=== PATIENT | male | born 1950 | race Hispanic/Latino ===

== ENCOUNTER 2019-02-12 23:40 | Emergency (ER) | payer MEDICARE ==
--- OUTSIDE RECORDS SUMMARY | 2019-02-12 23:43 | XMS REPORT | Summary of Care ---
:1950 Author Organization [facility] Primary [place] Address [address] [place] [address]- Encounter HQ Feliz_sonia(FIN) [phone] Date(s): 05/21/18 - 05/21/18 [facility] [place] [address] [place] [address]- [phone] Discharge Disposition: Home or Self Care Attending Physician: Walker Omalley MD Vital Signs Most recent to oldest [Reference Range]: 1 Height 172.72 cm (05/21/18 7:59 AM) Temperature Oral [96.4-99.1 DegF] 98.2 DegF (05/21/18 7:59 AM) Blood Pressure [90-140/60-90 mmHg] 135/82 mmHg (05/21/18 7:59 AM) Peripheral Pulse Rate [60-100 bpm] 78 bpm (05/21/18 7:59 AM) Weight 103.818 kg (05/21/18 7:59 AM) Body Mass Index 34.8 m2 (05/21/18 7:59 AM) Problem List Condition Effective Dates Status Health Status Informant Diabetes mellitus with Active hyperglycemia(Confirmed) Erectile dysfunction due to arterial Active insufficiency(Confirmed) Hypertension(Confirmed) Active Hypertensive heart disease(Confirmed) Active Impaired fasting glucose(Confirmed) Active Elevated PSA(Confirmed) Active Obesity due to excess Active calories(Confirmed) Allergies, Adverse Reactions, Alerts Substance Reaction Severity Status NKDA Active Medications losartan 25 mg oral tablet See Instructions, 1/2 tab PO daily, # 30 tab, 2 Refill(s), Pharmacy: [facility] #1 Start Date: 05/21/18 Stop Date: 11/24/18 Status: CompletedmetFORMIN 1000 mg oral tablet 1,000 mg=1 tab, PO, BID-Meals, # 180 tab, 1 Refill(s), Pharmacy: [facility] [place] #1 Start Date: 05/26/18 Status: Ordered Results No data available for this section Immunizations No data available for this section Procedures Procedure Date Related Diagnosis Body Site Status Diabetic retinal eye exam 06/16/18 Completed Tonsillectomy Completed Social History Social History Type Response Smoking Status Former smoker; Type: Cigarettes; Exposure to Tobacco Smoke None ; Cigarette Smoking Last 365 Days No; Reg Smoking Cessation Counseling No1 entered on: 12/07/18 120 years ago Assessment and Plan No data available for this section
--- OUTSIDE RECORDS SUMMARY | 2019-02-12 23:43 | XMS REPORT | Continuity of Care Document ---
:1950 Author Organization Interface Problems Problem Status Onset Classification Date Comments Source Date Reported Congestion of 09/11/20 Diagnosis 09/11/2018 [facility] nasal sinus 18 Body mass index 09/11/20 Diagnosis 09/11/2018 [facility] 30+ - obesity 18 Hypertensive 09/11/20 Diagnosis 09/11/2018 [facility] disorder 18 Cough 09/11/20 Diagnosis 09/11/2018 [facility] 18 Influenza-like 09/11/20 Diagnosis 09/11/2018 [facility] symptoms 18 Acute 09/11/20 Diagnosis 09/11/2018 [facility] pharyngitis 18 Essential 06/13/20 Diagnosis 06/13/2018 [facility] hypertension 18 Lower 06/13/20 Diagnosis 06/13/2018 [facility] respiratory 18 tract infection Cough 06/02/20 12/13/2018 [facility] 18 [place] R05 - COUGH Active 05/22/20 [facility] 18 [place] Erectile Active Problem 12/13/2018 Medical dysfunction due Group, [facility] to arterial [place] insufficiency Hypertension Active Problem 12/13/2018 Medical Group, [facility] [place] Impaired fasting Active Problem 12/13/2018 Medical glucose Group, [facility] [place] Elevated PSA Active Problem 12/13/2018 Medical Group, [facility] [place] Obesity due to Active Problem 12/13/2018 Medical excess calories Group, [facility] [place] Diabetes Active Problem 12/13/[address] [facility] [address] [facility] hyperglycemia Medical Group Hypertensive Active Problem 12/13/2018 [facility] heart disease [place], Medical Group Acute Viral Problem 09/11/2018 [facility] Pharyngitis Medications Medication Details Route Status Patient Ordering Order Source Instructions Provider Date losartan 25 mg =0.5 tab, PO, Active Medical oral tablet Daily, # 45 2018 Group ea, Pharmacy: [facility] Pharmacy [place] #1 amLODIPine 10 =1 tab, PO, Active 11/24/ Medical mg oral tablet Daily, # 90 2018 Group ea, Pharmacy: [facility] Pharmacy [place] #1 Metformin 1,000 mg=1 Active Medical hydrochloride tab, PO, 2018 Group 1000 MG Oral BID-Meals, # Tablet 180 tab, 1 Refill(s), Pharmacy: [facility] #1 amLODIPine 10 See No Medical mg oral tablet Instructions, Longer 2018 Group # 90 ea, Active Refill(s) 1, TAKE ONE (1) TABLET(S) BY MOUTH DAILY., Pharmacy: [facility] #1 losartan 25 mg See No Medical oral tablet Instructions, Longer 2018 Group 1/2 tab PO Active daily, # 30 tab, 2 Refill(s), Pharmacy: [facility] #1 lisinopril 10 See No Medical mg oral tablet Instructions, Longer 2018 Group # 90 ea, TAKE Active ONE (1) TABLET(S) BY MOUTH ONCE A DAY., Pharmacy: [facility] #1 amLODIPine 10 See Active Medical mg oral tablet Instructions, 2018 Group # 90 ea, TAKE ONE (1) TABLET(S) BY MOUTH DAILY., Pharmacy: [facility] # lisinopril 10 See Active Medical mg oral tablet Instructions, 2018 Group # 90 ea, TAKE ONE (1) TABLET(S) BY MOUTH ONCE A DAY., Pharmacy: [facility] #1 lisinopril 10 10 mg=1 tab, Active Medical mg oral tablet PO, Daily, # 2017 Group 90 tab, 1 Refill(s), Pharmacy: [place] [address] amLODIPine 10 10 mg=1 tab, Active Medical mg oral tablet PO, Daily, # 2017 Group 90 tab, 1 Refill(s), Pharmacy: [facility] #1 Amlodipine 10 amlodipine 10 Active [facility] MG Oral Tablet mg tablet TAKE ONE (1) TABLET(S) BY MOUTH DAILY. Azithromycin azithromycin Active [facility] 250 MG Oral 250 mg tablet Tablet TAKE TWO (2) TABLET(S) BY MOUTH TODAY,THEN TAKE ONE TABLET DAILY FOR 4 DAYS. Lisinopril 10 lisinopril 10 Active [facility] MG Oral Tablet mg tablet TAKE ONE (1) TABLET(S) BY MOUTH ONCE A DAY. Losartan losartan 25 mg Active [facility] Potassium 25 MG tablet TAKE Oral Tablet 1/2 TABLET(S) BY MOUTH DAILY. Metformin metformin Active [facility] hydrochloride 1,000 mg 1000 MG Oral tablet TAKE Tablet ONE (1) TABLET(S) BY MOUTH TWICE A DAY WITH MEALS. benzonatate 200 benzonatate Active [facility] MG Oral Capsule 200 mg capsule Take 1 capsule 3 times a day by oral route for 10 days. Fluticasone fluticasone 50 Active [facility] propionate 0.05 mcg/actuation MG/ACTUAT nasal Metered Dose spray,suspensi Nasal Ucon on Ucon 2 sprays every day by intranasal route as needed for 14 days. Allergies, Adverse Reactions, Alerts Substance Category Reaction Severity Reaction Status Date Comments Source type Reported Immunizations Immunization Date Given Site Status Last Updated Comments Source Results Order Results Value Reference Date Interpretation Comments Source Name Range RESULT negative 09/11 [facility] /2017 SWAB Left and 09/11 [facility] LOCATION Right /2017 tonsillar pillars RESULT negative 06/13 [facility] /2017 SWAB Left and 06/13 [facility] LOCATION Right /2017 tonsillar pillars Influenza negative 06/13 [facility] A Influenza negative 06/13 [facility] B /2017 Chest Chest 2 Clinical Indication: - chronic cough 05/26 - [facility] 2 views DX /2017 - [place] views Comparison: None DX Read by: Javier Hylton MD Dictated Date/time: 05/26/18 17:41 FINDINGS: Electronically Signed by: Javier Hylton MD 05/26/18 17:41 FINAL REPORT The PA and lateral chest radiographs shows normal lung volumes without interstitial or airspace opacities, pleural effusions or pneumothorax. The heart size and pulmonary vasculature are normal. The trachea is midline. There are no clinically significant osseous abnormalities noted. IMPRESSION: No chest radiographic evidence of acute cardiopulmonary disease. SL: [id number] Vital Signs Vital Sign Value Date Comments Source BMI Calculated 33.8 12/07/2018 [facility] Height 172.72 cm 12/07/2018 [facility] Weight 100.818 12/07/2018 [facility] Temperature Oral (F) 98.1 F 12/07/2018 [facility] Systolic (mm Hg) 158 12/07/2018 [facility] Diastolic (mm Hg) 80 12/07/2018 [facility] Group Heart Rate 96 12/07/2018 [facility] Diastolic (mm Hg) 80 09/11/2018 [facility] Height 68 09/11/2018 [facility] Systolic (mm Hg) 130 09/11/2018 [facility] Weight 225 09/11/2018 [facility] Diastolic (mm Hg) 80 06/13/2018 [facility] Height 68 06/13/2018 [facility] Systolic (mm Hg) 130 06/13/2018 [facility] Weight 225 06/13/2018 [facility] Height 172.72 cm 05/21/2018 [facility] Heart Rate 78 05/21/2018 [facility] Temperature Oral (F) 98.2 F 05/21/2018 [facility] Group Systolic (mm Hg) 135 05/21/2018 [facility] Diastolic (mm Hg) 82 05/21/2018 [facility] Weight 103.818 05/21/2018 [facility] BMI Calculated 34.8 05/21/2018 [facility] Weight 101 08/18/2017 [facility] Group BMI Calculated 33.86 08/18/2017 [facility] Temperature Oral (F) 98.0 F 08/18/2017 [facility] Group Heart Rate 102 08/18/2017 [facility] Height 172.72 cm 08/18/2017 [facility] Systolic (mm Hg) 149 08/18/2017 [facility] Diastolic (mm Hg) 90 08/18/2017 [facility] Group Encounters Location Location Encounter Encounter Reason Attending ADM DC Status Source Details Type Number For Provider Date Date Visit Outpatient [id number] EBEN 10/06 [facility] [place] Outpatient [id number] MILAG[place] 07/12 [facility] [place] Outpatient [id number] MIL[place] 02/17 [facility] [place] Outpatient [id number] EBEN 08/18 [facility] Outpatient [id number] Eben 08/18 08/19 Primary Bautista /2016 [facility] [place] [facility] MG Phone [id number] 02/13 02/15 Primary Message /2017 [facility] [place] [facility] MG Phone [id number] 02/16 02/18 Primary Message /2017 [facility] [place] [facility] MG Phone [id number] 05/15 05/17 Primary Message /2017 [facility] [place] [facility] Outpatient [id number] EBEN 05/21 [facility] Outpatient [id number] Eben 05/21 05/22 Primary Bautista /2017 [facility] [place] [facility] MG Phone [id number] 05/25 05/27 Primary Message /2017 [facility] [place] [facility] Outpt Diag [id number] Eben 05/26 05/27 [facility] Outpatient Services Bautista /2017 [facility] [place] - Seby [id number] [place] 06/13 [facility] [place], [id number] ic - PA-C: [id number], [place] [address], Ph. [place] - Marti [id number] Marti 09/11 [facility], [id number] Surendra ic - DUMPER OPERATOR: [id number], [place] [address], Ph. MG Phone [id number] 11/24 11/26 Primary Message /2018 [facility] [place] [facility] Outpatient [id number] Eben 12/[address] [facility] Outpatient [id number] Eben 12/07 12/08 Primary Bautista /2018 [facility] [place] [facility] MG Between [id number] 12/09 12/10 Primary Visit /2018 [facility] [place] [facility] Procedures Procedure Code Date Perfomer Comments Source Diabetic retinal [id number] 06/16/2018 Medical eye exam Group Diabetic retinal [id number] 06/16/2018 [facility] eye exam [place] Tonsillectomy [id number] Medical Group Tonsillectomy [id number] [facility] [place]
--- OUTSIDE RECORDS SUMMARY | 2019-02-12 23:43 | XMS REPORT | Summary of Care ---
:1950 Author Organization [facility] Primary [facility] [place] Address [address] [place] [address]- Encounter HQ Feliz_sonia(FIN) [id number] Date(s): 12/07/18 - 12/07/18 [facility] [place] [address] [place] [address]- Discharge Disposition: Home or Self Care Attending Physician: Walker Omalley MD Vital Signs Most recent to oldest [Reference Range]: 1 Height 172.72 cm (12/07/18 8:09 AM) Temperature Oral [96.4-99.1 DegF] 98.1 DegF (12/07/18 8:09 AM) Blood Pressure [90-140/60-90 mmHg] 158/80 mmHg *HI* (12/07/18 8:09 AM) Peripheral Pulse Rate [60-100 bpm] 96 bpm (12/07/18 8:09 AM) Weight 100.818 kg (12/07/18 8:09 AM) Body Mass Index 33.8 m2 (12/07/18 8:09 AM) Problem List Condition Effective Dates Status Health Status Informant Diabetes mellitus with Active hyperglycemia(Confirmed) Erectile dysfunction due to arterial Active insufficiency(Confirmed) Hypertension(Confirmed) Active Hypertensive heart disease(Confirmed) Active Impaired fasting glucose(Confirmed) Active Elevated PSA(Confirmed) Active Obesity due to excess Active calories(Confirmed) Allergies, Adverse Reactions, Alerts Substance Reaction Severity Status NKDA Active Medications No Known Medications Results No data available for this section [...]
--- OUTSIDE RECORDS SUMMARY | 2019-02-12 23:44 | XMS REPORT | Summary of Care ---
:1950 Author Organization [facility] Primary [facility] [place] Address [address] [place] [address]- Encounter HQ Naomintr_sonia(FIN) [id number] Date(s): 05/25/18 - 05/26/18 [facility] [place] [address] [place] [address]- Vital Signs No data available for this section Problem List Condition Effective Dates Status Health Status Informant Diabetes mellitus with Active hyperglycemia(Confirmed) Erectile dysfunction due to arterial Active insufficiency(Confirmed) Hypertension(Confirmed) Active Hypertensive heart disease(Confirmed) Active Impaired fasting glucose(Confirmed) Active Elevated PSA(Confirmed) Active Obesity due to excess Active calories(Confirmed) Allergies, Adverse Reactions, Alerts Substance Reaction Severity Status NKDA Active Medications amLODIPine 10 mg oral tablet See Instructions, # 90 ea, Refill(s) 1, TAKE ONE (1) TABLET(S) BY MOUTH DAILY., Pharmacy: [facility] Pharmacy [place] #1 Start Date: 05/26/18 Stop Date: 11/24/18 Status: Completed Results No data available for this section [...]
--- OUTSIDE RECORDS SUMMARY | 2019-02-12 23:44 | XMS REPORT | Summary of Care ---
:1950 Author Organization [facility] Outpatient Imaging [place] Address [address] [place], [place] [address]- Encounter HQ Encntr_alias(FIN) [id number] Date(s): 05/26/18 - 05/26/18 [facility] Outpatient Imaging [address], [address] [place] [address]- [phone] Encounter Diagnosis Cough (Final) - 06/01/18 Discharge Disposition: Home or Self Care Attending Physician: Walker Omalley MD Referring Physician: Walker Omalley MD Vital Signs No data available for this section Problem List Condition Effective Dates Status Health Status Informant Diabetes mellitus with Active hyperglycemia(Confirmed) Erectile dysfunction due to arterial Active insufficiency(Confirmed) Hypertension(Confirmed) Active Hypertensive heart disease(Confirmed) Active Impaired fasting glucose(Confirmed) Active Elevated PSA(Confirmed) Active Obesity due to excess Active calories(Confirmed) Allergies, Adverse Reactions, Alerts Substance Reaction Severity Status NKDA Active Medications No data available for this section Results No data available for this section [...]
--- OUTSIDE RECORDS SUMMARY | 2019-02-12 23:44 | XMS REPORT | Summary of Care ---
:1950 Author Organization [facility] Outpatient Imaging [place] Address [address] [place], [place] [address]- Encounter HQ Encntr_alias(FIN) [id number] Date(s): 05/26/18 - 05/26/18 [facility] Outpatient Imaging [address], [address] [place] [address]- [phone] Encounter Diagnosis Cough (Final) - 06/01/18 Discharge Disposition: Home or Self Care Attending Physician: Walker Omalley MD Referring Physician: Walker Omalley MD Vital Signs No data available for this section Problem List Condition Effective Dates Status Health Status Informant Erectile dysfunction due to arterial Active insufficiency(Confirmed) Hypertension(Confirmed) Active Impaired fasting glucose(Confirmed) Active Elevated PSA(Confirmed) [...] Reg Smoking Cessation Counseling No1 entered on: 05/21/18 120 years ago Assessment and Plan No data available for this section
--- OUTSIDE RECORDS SUMMARY | 2019-02-12 23:44 | XMS REPORT | Summary of Care ---
:1950 Author Organization [facility] Primary [place] Address [address] [place] [address]- Encounter HQ Feliz_sonia(FIN) [id number] Date(s): 05/25/18 - 05/26/18 [facility] [place] [address] [place] [address] [phone] Vital Signs No data available for this [...] ONE (1) TABLET(S) BY MOUTH DAILY., Pharmacy: [facility] #1 Start Date: 05/26/18 Status: Ordered Results [...]
--- OUTSIDE RECORDS SUMMARY | 2019-02-12 23:44 | XMS REPORT | Summary of Care ---
:1950 Author Organization [facility] Primary [place] Address [address] [place] [address]- Encounter HQ Amadour_sonia(FIN) [id number] Date(s): 02/16/18 - 02/17/18 [facility] [place] [address] [place] [address] [phone] Vital Signs No data available for this section Problem List Condition Effective Dates Status Health Status Informant Erectile dysfunction due to arterial Active insufficiency(Confirmed) Hypertension(Confirmed) Active Impaired fasting glucose(Confirmed) Active Elevated PSA(Confirmed) Active Obesity due to excess Active calories(Confirmed) Allergies, Adverse Reactions, Alerts Substance Reaction Severity Status NKDA Active Medications amLODIPine 10 mg oral tablet See Instructions, # 90 ea, TAKE ONE (1) TABLET(S) BY MOUTH DAILY., Pharmacy: [facility] Pharmacy [place] #1 Start Date: 02/17/18 Status: Ordered Results No data available for this section Immunizations No data available for this section Procedures Procedure Date Related Diagnosis Body Site Status Tonsillectomy Completed Social History Social History Type Response Smoking Status Former smoker; Type: Cigarettes; Exposure to Tobacco Smoke None ; Cigarette Smoking Last 365 Days No; Reg Smoking Cessation Counseling No1 entered on: 08/18/17 120 years ago Assessment and Plan No data available for this section
--- OUTSIDE RECORDS SUMMARY | 2019-02-12 23:44 | XMS REPORT | Summary of Care ---
:1950 Author Organization [facility] Primary [facility] [place] Address [address] [place] [address]- Encounter HQ Encntr_sonia(FIN) [id number] Date(s): 12/09/18 - 12/10/18 [facility] [place] [address] [place] [address]- [phone] Vital Signs No data available for this [...]
--- OUTSIDE RECORDS SUMMARY | 2019-02-12 23:44 | XMS REPORT | Summary of Care ---
:1950 Author Organization [facility] Primary [facility] [place] Address [address] [place] [address]- Encounter HQ Amadour_sonia(FIN) [id number] Date(s): 02/13/18 - 02/14/18 [facility] [place] [address] [place] [address] [phone] Vital Signs No data available for this section Problem List Condition Effective Dates Status Health Status Informant Erectile dysfunction due to arterial Active insufficiency(Confirmed) Hypertension(Confirmed) Active Impaired fasting glucose(Confirmed) Active Elevated PSA(Confirmed) Active Obesity due to excess Active calories(Confirmed) Allergies, Adverse Reactions, Alerts Substance Reaction Severity Status NKDA Active Medications lisinopril 10 mg oral tablet See Instructions, # 90 ea, TAKE ONE (1) TABLET(S) BY MOUTH ONCE A DAY., Pharmacy : [facility] #1 Start Date: 02/13/18 Status: Ordered Results No data available for [...]
--- OUTSIDE RECORDS SUMMARY | 2019-02-12 23:44 | XMS REPORT | Summary of Care ---
:1950 Author Organization [facility] Primary [facility] [place] Address [address] [place] [address]- Encounter HQ Feliz_sonia(FIN) [id number] Date(s): 08/18/17 - 08/18/17 [facility] Primary [facility] [place] [address] [place] [address] [phone] Discharge Disposition: Home or Self Care Attending Physician: Walker Omalley MD Vital Signs Most recent to oldest [Reference Range]: 1 Height 172.72 cm (08/18/17 2:37 PM) Temperature Oral [96.4-99.1 DegF] 98.0 DegF (08/18/17 2:37 PM) Blood Pressure [90-140/60-90 mmHg] 149/90 mmHg *HI* (08/18/17 2:37 PM) Peripheral Pulse Rate [60-100 bpm] 102 bpm *HI* (08/18/17 2:37 PM) Weight 101 kg (08/18/17 2:37 PM) Body Mass Index 33.86 m2 (08/18/17 2:37 PM) Problem List Condition Effective Dates Status Health Status Informant Erectile dysfunction due to arterial Active insufficiency(Confirmed) Hypertension(Confirmed) Active Impaired fasting glucose(Confirmed) Active Elevated PSA(Confirmed) Active Obesity due to excess Active calories(Confirmed) Allergies, Adverse Reactions, Alerts Substance Reaction Severity Status NKDA Active Medications amLODIPine 10 mg oral tablet 10 mg=1 tab, PO, Daily, # 90 tab, 1 Refill(s), Pharmacy: [facility] [place] # 1 Start Date: 08/18/17 Status: Orderedlisinopril 10 mg oral tablet 10 mg=1 tab, PO, Daily, # 90 tab, 1 Refill(s), Pharmacy: [facility] [place] # 1 Start Date: 08/19/17 Status: Ordered Results No data available for this section Immunizations No data available for this section Procedures Procedure Date Related Diagnosis Body Site Tonsillectomy Social History Social History Type Response Smoking Status Former smoker; Type: Cigarettes; Exposure to Tobacco Smoke None ; Cigarette Smoking Last 365 Days No; Reg Smoking Cessation Counseling No1 120 years ago Assessment and Plan No data available for this section
--- OUTSIDE RECORDS SUMMARY | 2019-02-12 23:45 | XMS REPORT | Encounter Summary ---
:1950 Author Reason for Visit Medical Complaint Instructions 1. Acute pharyngitis rapid strep group A, throat sore throat: care instructions culture, respiratory 2. Influenza-like symptoms 3. Congestion of nasal sinus fluticasone 50 mcg/actuation nasal spray,suspension 4. Cough cough: care instructions benzonatate 200 mg capsule 5. Hypertensive disorder elevated blood pressure: care instructions 6. Body mass index 30+ - obesity body mass index: care instructions learning about healthy weight Discussion Note: None recorded. Plan of Care Patient Instructions Sore Throat: Care Instructions Your Care Instructions Infection by bacteria or a virus causes most sore throats. Cigarette smoke, dry air, air pollution, allergies, and yelling can also cause a sore throat. Sore throats can be painful and annoying. Genevieve tely, most sore throats go away on their own. If you have a bacterial infection , your doctor may prescribe antibiotics. Follow-up care is a jain part of your treatment and safety. Be sure to make and go to all appointments, and call your doctor if you are having problems. It's also a good idea to know your test results and keep a list of the medicines you take. How can you care for yourself at home? If your doctor prescribed antibiotics, take them as directed. Do not stop taking them just because you feel better. You need to take the full course of antibiotics. Gargle with warm salt water once an hour to help reduce swelling and relieve discomfort. Use 1 teaspoon of salt mixed in 1 cup of warm water. Take an pjye-rxu-eyotucl pain medicine, such as acetaminophen (Tylenol), ibuprofen (Advil, Motrin), or naproxen (Aleve). Read and follow all instructions on the label. Be careful when taking ceqq-jop-qftjhog cold or flu medicines and Tylenol at the same time. Many of these medicines have acetaminophen, which is Tylenol. Read the labels to make sure that you are not ta zev more than the recommended dose. Too much acetaminophen (Tylenol) can be harmful. Drink plenty of fluids. Fluids may help soothe an irritated throat. Hot fluids , such as tea or soup, may help decrease throat pain. Use bsnp-iig-gmvnagp throat lozenges to soothe pain. Regular cough drops or hard candy may also help. These should not be given to young children because of the risk of choking. Do not smoke or allow others to smoke around you. If you need help quitting, talk to your doctor about stop-smoking programs and medicines. These can increase your chances of quitting for good. Use a vaporizer or humidifier to add moisture to your bedroom. Follow the directions for cleaning the machine. When should you call for help? Call your doctor now or seek immediate medical care if: You have new or worse trouble swallowing. Your sore throat gets much worse on one side. Watch closely for changes in your health, and be sure to contact your doctor if you do not get better as expected. Where can you learn more? Go to www.[employer], log into the web portal, and enter U420 in the search box to learn more about Sore Throat: Care Instructions. Care instructions adapted under license by [facility]. This care instruction is for use with your licensed healthcare professional. If you have questions about a medical condition or this instruction, a lways ask your healthcare professional. [employer] disclaims any warranty or liability for your use of this information. Influenza (Flu): Care Instructions Your Care Instructions Influenza (flu) is an infection in the lungs and breathing passages. It is caused by the influenza virus. There are different strains, or types, of the flu virus from year to year. Unlike the common col d, the flu comes on suddenly and the symptoms, such as a cough, congestion, fever, chills, fatigue, aches, and pains, are more severe. These symptoms may last up to 10 days. Although the flu can make yo u feel very sick, it usually doesn't cause serious health problems. Home treatment is usually all you need for flu symptoms. But your doctor may prescribe antiviral medicine to prevent other health problems, such as pneumonia , from developing. Older people and those who have a long-term health condition, such as lung disease, are most at risk for having pneumonia or other health problems. Follow-up care is a jain part of your treatment and safety. Be sure to make and go to all appointments, and call your doctor if you are having problems. It s also a good idea to know y our test results and keep a list of the medicines you take. How can you care for yourself at home? Get plenty of rest. Drink plenty of fluids, enough so that your urine is light yellow or clear like water. If you have kidney, heart, or liver disease and have to limit fluids, talk with your doctor before you increase the amount of fluids you drink. Take an vtcx-wrf-hlwxjcp pain medicine if needed, such as acetaminophen (Tylenol), ibuprofen (Advil, Motrin), or naproxen (Aleve), to relieve fever, headache, and muscle aches. Read and follow all instructions on the label. No one younger than 20 should take aspirin. It has been linked to Ivis syndrome, a serious illness. Do not smoke. Smoking can make the flu worse. If you need help quitting, talk to your doctor about stop-smoking programs and medicines. These can increase your chances of quitting for good. Breathe moist air from a hot shower or from a sink filled with hot water to help clear a stuffy nose. Before you use cough and cold medicines, check the label. These medicines may not be safe for young children or for people with certain health problems. If the skin around your nose and lips becomes sore, put some petroleum jelly on the area. To ease coughing: Drink fluids to soothe a scratchy throat. Suck on cough drops or plain hard candy. Take an zjvl-scn-vountgv cough medicine that contains dextromethorphan to help you get some sleep. Read and follow all instructions on the label. Raise your head at night with an extra pillow. This may help you rest if coughing keeps you awake. Take any prescribed medicine exactly as directed. Call your doctor if you think you are having a problem with your medicine. To avoid spreading the flu Wash your hands regularly, and keep your hands away from your face. Stay home from school, work, and other public places until you are feeling better and your fever has been gone for at least 24 hours. The fever needs to have gone away on its own without the help of medicine. Ask people living with you to talk to their doctors about preventing the flu. They may get antiviral medicine to keep from getting the flu from you. To prevent the flu in the future, get a flu vaccine every fall. Encourage people living with you to get the vaccine. Cover your mouth when you cough or sneeze. When should you call for help? Call 911 anytime you think you may need emergency care. For example, call if: You have severe trouble breathing. Call your doctor now or seek immediate medical care if: You have new or worse trouble breathing. You seem to be getting much sicker. You feel very sleepy or confused. You have a new or higher fever. You get a new rash. Watch closely for changes in your health, and be sure to contact your doctor if : You begin to get better and then get worse. You are not getting better after 1 week. Where can you learn more? Go to www.[employer], log into the web portal, and enter L652 in the search box to learn more about Influenza (Flu): Care Instructions. Care instructions adapted under license by [facility] [place]. This care instruction is for use with your licensed healthcare professional. If you have questions about a medical con dition or this instruction, always ask your healthcare professional. [employer] disclaims any warranty or liability for your use of this information. Cough: Care Instructions Your Care Instructions A cough is your body's response to something that bothers your throat or airways. Many things can cause a cough. You might cough because of a cold or the flu, bronchitis, or asthma. Smoking, postnasal d rip, allergies, and stomach acid that backs up into your throat also can cause coughs. A cough is a symptom, not a disease. Most coughs stop when the cause, such as a cold, goes away. You can take a few steps at home to cough less and feel better. Follow-up care is a jain part of your treatment and safety. Be sure to make and go to all appointments, and call your doctor if you are having problems. It' s also a good idea to know your test results and keep a list of the medicines you take. How can you care for yourself at home? Drink lots of water and other fluids. This helps thin the mucus and soothes a dry or sore throat. Honey or lemon juice in hot water or tea may ease a dry cough. Take cough medicine as directed by your doctor. Prop up your head on pillows to help you breathe and ease a dry cough. Try cough drops to soothe a dry or sore throat. Cough drops don't stop a cough. Medicine-flavored cough drops are no better than candy-flavored drops or hard candy. Do not smoke. Avoid secondhand smoke. If you need help quitting, talk to your doctor about stop-smoking programs and medicines. These can increase your chances of quitting for good. When should you call for help? Call 911 anytime you think you may need emergency care. For example, call if: You have severe trouble breathing. Call your doctor now or seek immediate medical care if: You cough up blood. You have new or worse trouble breathing. You have a new or higher fever. You have a new rash. Watch closely for changes in your health, and be sure to contact your doctor if : You cough more deeply or more often, especially if you notice more mucus or a change in the color of your mucus. You have new symptoms, such as a sore throat, an earache, or sinus pain. You do not get better as expected. Where can you learn more? Go to www.[employer], log into the web portal, and enter D279 in the search box to learn more about Cough: Care Instructions. Care instructions adapted under license by [facility] [place]. This care instruction is for use with your licensed healthcare professional. If you have questions about a medical con dition or this instruction, always ask your healthcare professional. [employer] disclaims any warranty or liability for your use of this information. Elevated Blood Pressure: Care Instructions Your Care Instructions Blood pressure is a measure of how hard the blood pushes against the sarkar of your arteries. It's normal for blood pressure to go up and down throughout the day. But if it stays up over time, you have high blood pressure. Two numbers tell you your blood pressure. The first number is the systolic pressure. It shows how hard the blood pushes when your heart is pumping. The second number is the diastolic pressure. It shows how hard the blood pushes between heartbeats, when your heart is relaxed and filling with blood. An ideal blood pressure in adults is less than 120/80 (say "120 over 80"). High blood pressure is 140/90 or higher. You have high blood pressure if your top number is 140 or higher or your bottom number is 90 or higher, or both. The main test for high blood pressure is simple, fast, and painless. To diagnose high blood pressure, your doctor will test your blood pressure at different times. You may have to check your blood press ure at home if there is reason to think that the results in the doctor's office aren't accurate. If you are diagnosed with high blood pressure, you can work with your doctor to make a long-term plan to manage it. Follow-up care is a jain part of your treatment and safety. Be sure to make and go to all appointments, and call your doctor if you are having problems. It's also a good idea to know your test results and keep a list of the medicines you take. How can you care for yourself at home? Do not smoke. Smoking increases your risk for heart attack and stroke. If you need help quitting, talk to your doctor about stop-smoking programs and medicines. These can increase your chances of quitting for good. Stay at a healthy weight. Try to limit how much sodium you eat to less than 2,300 milligrams (mg) a day. Your doctor may ask you to try to eat less than 1,500 mg a day. Be physically active. Get at least 30 minutes of exercise on most days of the week. Walking is a good choice. You also may want to do other activities, such as running, swimming, cycling, or playing tennis or team sports. Avoid or limit alcohol. Talk to your doctor about whether you can drink any alcohol. Eat plenty of fruits, vegetables, and low-fat dairy products. Eat less saturated and total fats. Learn how to check your blood pressure at home. When should you call for help? Call your doctor now or seek immediate medical care if: Your blood pressure is much higher than normal (such as 180/110 or higher). You think high blood pressure is causing symptoms such as: Severe headache. Blurry vision. Watch closely for changes in your health, and be sure to contact your doctor if : You do not get better as expected. Where can you learn more? Go to www.[employer], log into the web portal, and enter F644 in the search box to learn more about Elevated Blood Pressure: Care Instructions. Care instructions adapted under license by [facility]. This care instruction is for use with your licensed healthcare professional. If you have questions about a medical condition or this instruction, a lways ask your healthcare professional. [employer] disclaims any warranty or liability for your use of this information. When You Are Overweight: Care Instructions Your Care Instructions If you're overweight, your doctor may recommend that you make changes in your eating and exercise habits. Being overweight can lead to serious health problems , such as high blood pressure, heart disease , type 2 diabetes, and arthritis, or it can make these problems worse. Eating a healthy diet and being more active can help you reach and stay at a healthy weight. You dont have to make huge changes all at once. Start by making small changes in your eating and exercise habits. To lose weight, you need to burn more calories than you take in. You c an do this by eating healthy foods in reasonable amounts and becoming more active every day. Follow-up care is a jain part of your treatment and safety. Be sure to make and go to all appointments, and call your doctor if you are having problems. It's also a good idea to know your test results and keep a list of the medicines you take. How can you care for yourself at home? Improve your eating habits. You'll be more successful if you work on changing one eating habit at a time. All foods, if eaten in moderation, can be part of healthy eating. Remember to: Eat a variety of foods from each food group. Include grains, vegetables, fruits , dairy, and protein foods. Limit foods high in fat, sugar, and calories. Eat slowly. And don't do anything else, such as watch TV, while you are eating. Pay attention to portion sizes. Put your food on a smaller plate. Plan your meals ahead of time. You'll be less likely to grab something that's not as healthy. Get active. Regular activity can help you feel better, have more energy, and burn more calories. If you haven't been active, start slowly. Start with at least 30 minutes of moderate activity on most day s of the week. Then gradually increase the amount of activity. Try for 60 or 90 minutes a day, at least 5 days a week. There are a lot of ways to fit activity into your life. You can: Walk or bike to the store. Or walk with a friend, or walk the dog. Mow the lawn, rake leaves, shovel snow, or do some gardening. Use the stairs instead of the elevator, at least for a few floors. Change your thinking. Your thoughts have a lot to do with how you feel and what you do. When you're trying to reach a healthy weight, changing how you think about certain things may help. Here are some ideas: Don't compare yourself to others. Healthy bodies come in all shapes and sizes. Pay attention to how hungry or full you feel. When you eat, be aware of why you 're eating and how much you're eating. Focus on improving your health instead of dieting. Dieting almost never works over the intermediate. Ask your doctor about other health professionals who can help you reach a healthy weight. A dietitian can help you make healthy changes in your diet. An cheese specialist or personal injury paralegal can help you develop a safe and effective exercise program. A counselor or psychiatrist can help you cope with issues such as depression, anxiety, or family problems that can make it hard to focus on reaching a healthy weight. Get support from your family, your doctor, your friends, a support groupand support yourself. Where can you learn more? Go to www.[employer], log into the web portal, and enter L869 in the search box to learn more about When You Are Overweight: Care Instructions. Care instructions adapted under license by [facility]. This care instruction is for use with your licensed healthcare professional. If you have questions about a medical condition or this instruction, a lways ask your healthcare professional. [employer] disclaims any warranty or liability for your use of this information. Reminders Provider Appointments None recorded. Lab Rapid Strep [facility], Throat 09/11/2018 Culture, [facility] Respiratory 09/11/2018 Referral None recorded. Procedures None recorded. Surgeries None recorded. Imaging None recorded. Medications Name Start Date amlodipine 10 mg tablet TAKE ONE (1) TABLET(S) BY MOUTH DAILY. azithromycin 250 mg tablet TAKE TWO (2) TABLET(S) BY MOUTH TODAY,THEN TAKE ONE TABLET DAILY FOR 4 DAYS. benzonatate 200 mg capsule Take 1 capsule 3 times a day by oral route for 10 days. fluticasone 50 mcg/actuation nasal spray,suspension [place] 2 sprays every day by intranasal route as needed for 14 days. lisinopril 10 mg tablet TAKE ONE (1) TABLET(S) BY MOUTH ONCE A DAY. losartan 25 mg tablet TAKE 1/2 TABLET(S) BY MOUTH DAILY. metformin 1,000 mg tablet TAKE ONE (1) TABLET(S) BY MOUTH TWICE A DAY WITH MEALS. Medications Administered None recorded. Vitals Height Weight BMI Blood Pressure 5 ft 8 in 225 lbs 34.2 kg/m2 (1) 136/88 mm[Hg] (2) 130/80 mm[Hg] Lab Results Date Name Specimen Result Interpretation Description Value Range Status Address Rapid Strep Result negative [facility]: Group a, 9 [facility] Swab Left and Right [facility]: Location tonsillar [facility] Allergies Code Code System Name Reaction Severity Status Onset NKDA Problems Name Status Onset Date Source Acute Viral Pharyngitis Active Encounter Procedures None recorded. Vaccine List None recorded. Social History Smoking Status Former Smoker Past Encounters 09/11/2018 Acute Pharyngitis; Influenza-like Symptoms; Congestion of Nasal Sinus; Cough; Hypertensive Disorder; Body Mass Index 30+ - Obesity Marti Agosto, [facility]: [address] [place] [address], [address], [place] [address], Ph. History of Present Illness Throat-Oral Complaint Reported By: Patient HPI: Location: throat. Quality: sore throat, dry or hacking cough. Severity: moderate. Duration: 4 days. Onset/Timing: sudden. Context: no sick contacts, no foreign travel, non-smoker. Modifying factors: OTC medication. Associated Symptoms: no sputum production, no shortness of breath, no wheezing, no change in number of pillows needed to sleep at night, no sweats, no significant weight gain, no significant weight loss, no morning cough, no vomiting, no diarrhea, no rash, no nausea, sore throat Review of Systems Basic Reported By: Patient Constitutional: Constitutional: no fever Eyes: Eyes: no eye complaints Nqoj-Dxca-Yauds-Throat: Ears: no ear complaints. Nose: no nose/sinus problems. Mouth/Throat: no bleeding gums, no mouth complaints, no teeth problems, sore throat Cardiovascular: Cardiovascular: no chest pain, no shortness of breath, no known heart murmur Respiratory: Respiratory: no wheezing, no shortness of breath, cough Gastrointestinal: Gastrointestinal: no abdominal pain, no vomiting / diarrhea Genitourinary: Genitourinary: no urinary complaints, no discharge Musculoskeletal: Musculoskeletal: no muscle aches, no muscle weakness, no arthralgias/joint pain, no back pain Skin: Skin: no abnormal / changing mole, no jaundice, no rashes Neurologic: Neurologic: no loss of consciousness, no weakness, no numbness, no seizures, no dizziness, no headaches Physical Exam Adult Basic, Adult Male Complete Reported By: Patient Constitutional: General Appearance: obese. Level of Distress: mild distress. Ambulation: ambulating normally Psychiatric: Mental Status: active and alert. Orientation: to time, to place, to person Pho-Odyk-Kyttc-Throat: Ears: no lesions on external ear, no outer ear tenderness, EACs clear, TMs clear, TM mobility normal. Hearing: no hearing loss. Nose: no lesions on external nose, nares patent, no septal deviation, nasal passages clear, no sinus tenderness, nasal discharge. Lips, Teeth, and Gums: no mouth or lip ulcers, no bleeding gums, normal dentition. Oropharynx: moist mucous membranes, no exudates, tonsils not enlarged, erythema Neck: Neck: supple, trachea midline. Lymph Nodes: no cervical LAD, no supraclavicular LAD Lungs: Respiratory effort: no dyspnea, no tachypnea, no use of accessory muscles, no intercostal retractions. Auscultation: breath sounds normal, good air movement; intermittent cough Cardiovascular: Heart Auscultation: RRR, no murmurs Neurologic: Gait and Station: normal gait, normal station
--- OUTSIDE RECORDS SUMMARY | 2019-02-12 23:45 | XMS REPORT | Encounter Summary ---
:1950 Author Reason for Visit Medical Complaint Instructions 1. Lower respiratory tract infection azithromycin 250 mg tablet rapid flu (A+B) rapid strep group A, throat 2. Body mass index 30+ - obesity 3. Essential hypertension high blood pressure: care instructions learning about high blood pressure 4. Cough cough: care instructions Discussion Note: None recorded. Plan of Care Reminders Provider Appointments None recorded. Lab Rapid Flu 06/13/2018 [facility] (A+B) Rapid Strep 06/13/2018 [facility] Group a, Throat Referral None recorded. Procedures None recorded. Surgeries None recorded. Imaging None recorded. Medications Name Start Date amlodipine 10 mg tablet TAKE ONE (1) TABLET(S) BY MOUTH DAILY. azithromycin 250 mg tablet TAKE 2 TABLETS (500 MG) BY ORAL ROUTE ONCE DAILY FOR 1 DAY THEN 1 TABLET (250 MG) BY ORAL ROUTE ONCE DAILY FOR 4 DAYS lisinopril 10 mg tablet TAKE ONE (1) TABLET(S) BY MOUTH ONCE A DAY. losartan 25 mg tablet TAKE 1/2 TABLET(S) BY MOUTH DAILY. metformin 1,000 mg tablet TAKE ONE (1) TABLET(S) BY MOUTH TWICE A DAY WITH MEALS. Medications Administered None recorded. Vitals Height Weight BMI Blood Pressure 5 ft 8 in 225 lbs 34.2 kg/m2 130/80 mm[Hg] Lab Results Date Name Specimen Result Interpretation Description Value Range Status Address Rapid Strep Result negative [facility]: Group a, 9 [facility] Swab Location Left and Right [facility]: tonsillar 9 [facility] Rapid Flu Influenza a negative [facility]: (A+B) [address] [place] [address] Influenza B negative [facility]: [address] [place] [address] Allergies Code Code System Name Reaction Severity Status Onset NKDA Problems Name Status Onset Date Source Acute Viral Pharyngitis Active Encounter Procedures None recorded. Vaccine List None recorded. Social History Smoking Status Former Smoker Past Encounters 06/13/2018 Lower Respiratory Tract Infection; Body Mass Index 30+ - Obesity; Essential Hypertension; Cough Fouzia Rajan PA-C: [address], [address], [place] [address], Ph. History of Present Illness Cough Reported By: Patient HPI: Location: nasal/sinus. Quality: sore throat, dry cough. Duration: 4-5 days. Severity: mild, pain level 2/10. Onset/Timing: gradual. Context: no sick contacts, no foreign travel, non-smoker. Modifying factors: OTC medication. Associated Symptoms: no sputum production, no shortness of breath, no wheezing, no sweats, no significant weight gain, no significant weight loss, no morning cough, no vomiting, no diarrhea, no rash, no nausea, no fever/chills, no muscle aches, no headache, sore throat Notes: when lying down cough is worse- intermittent coughing- when coughing starts- pt coughs continuously then stops. Review of Systems Basic Reported By: Patient Constitutional: Constitutional: no fever Eyes: Eyes: no eye complaints Dxuc-Ytnb-Jdyfc-Throat: Ears: no ear complaints. Nose: no nose/sinus [...] Constitutional: General Appearance: obese. Level of Distress: NAD. Ambulation: ambulating normally Psychiatric: Mental Status: active and alert. Orientation: to time, to place, to person Eyes: Lids and Conjunctivae: non-injected, no discharge, no pallor. Pupils: PERRLA. Corneas: grossly intact. EOM: EOMI. Lens: clear. Sclerae: non-icteric. Vision: acuity grossly intact, peripheral vision grossly intact Rfh-Rtha-Mfemh-Throat: Ears: no lesions on external ear, no outer ear tenderness, EACs clear, TMs clear, TM mobility normal. Hearing: no hearing loss. Nose: no lesions on external nose, nares patent, no septal deviation, nasal passages clear, no sinus tenderness, no nasal discharge. Lips, Teeth, and Gums: no mouth or lip ulcers, no bleeding gums, normal dentition. Oropharynx: moist mucous membranes, no erythema, no exudates, tonsils not enlarged Neck: Neck: supple, trachea midline, no masses, FROM. Lymph Nodes: no cervical LAD, no supraclavicular LAD. Thyroid: no enlargement, non-tender, no nodules Lungs: Respiratory effort: no dyspnea, no tachypnea, no use of accessory muscles, no intercostal retractions. Percussion: no dullness, flatness, or hyperresonance. Auscultation: good air movement, rhonchi Cardiovascular: Heart Auscultation: RRR, no murmurs Musculoskeletal:: Motor Strength and Tone: normal motor strength, normal tone, normal. Joints, Bones, and Muscles: normal movement of all extremities, no bony abnormalities, no contractures, no malalignment, no tenderness. Extremities: no cyanosis, no edema Neurologic: Gait and Station: normal gait, normal station Skin: Inspection and palpation: no rash, no lesions, no ulcer, no abnormal nevi, no induration, no nodules, good turgor, no jaundice. Nails: normal Back: Thoracolumbar Appearance: normal curvature
--- OUTSIDE RECORDS SUMMARY | 2019-02-12 23:45 | XMS REPORT | Summary of Care ---
:1950 Author Organization [facility] [place] Address [address] [place] [address]- Encounter HQ Amadour_sonia(FIN) [id number] Date(s): 05/15/18 - 05/16/18 [facility] [place] [address] [place] [address]- 205- [phone] Vital Signs No data available for this [...] BY MOUTH ONCE A DAY., Pharmacy : [facility] Start Date: 05/15/18 Stop Date: 05/21/18 Status: Discontinued Results No data available for this section [...]
[2019-02-13] MEDS ORDERED: DOXYCYCLINE 100 MG CAP PO ONE (00:30)
[2019-02-13] MEDS ORDERED: TETANUS & DIPHTHERIA TOX,ADULT 0.5 ML VIAL ONE (00:30)
--- NOTE | 2019-02-13 00:37 | ER ---
Nurse's Notes [facility] Name: Michael Fields Age: 68 yrs Sex: Male : 1950 Arrival Date: 02/12/2019 Time: 23:42 Bed 14 Private MD: Diagnosis: Contact with other nonvenomous marine animals-stingray Presentation: 02/12 23:56 Presenting complaint: Patient states: I was fishing and a stingray got me. Transition ed1 of care: patient was not received from another setting of care. Onset of symptoms was February 12, 2019. Risk Assessment: Do you want to hurt yourself or someone else? Patient reports no desire to harm self or others. Initial Sepsis Screen: Does the patient meet any 2 criteria? No. Patient's initial sepsis screen is negative. Does the patient have a suspected source of infection? No. Patient's initial sepsis screen is negative. Care prior to arrival: None. 23:56 Method Of Arrival: Ambulatory ed1 23:56 Acuity: JOAQUIN 4 ed1 Triage Assessment: 23:57 General: Appears in no apparent distress. Behavior is calm, cooperative. Pain: ed1 Complains of pain in right index finger Pain currently is 7 out of 10 on a pain scale. EENT: No signs and/or symptoms were reported regarding the EENT system. Neuro: Level of Consciousness is awake, alert, obeys commands, Oriented to person, place, time, situation. Cardiovascular: Denies chest pain, Heart tones S1 S2 present. Respiratory: Airway is patent Respiratory effort is even, unlabored, Respiratory pattern is regular, symmetrical, Breath sounds are clear bilaterally. GI: No signs and/or symptoms were reported involving the gastrointestinal system. : No signs and/or symptoms were reported regarding the genitourinary system. Derm: Skin is healthy with good turgor, Skin is dry, Skin is normal, Skin temperature is warm. Musculoskeletal: Circulation, motion, and sensation intact. Range of motion: intact in all extremities. Historical: - Allergies: 23:57 No Known Allergies; ed1 - Home Meds: 23:57 Unable to obtain [Active]; ed1 - PMHx: 23:57 Hypertension; ed1 - PSHx: 23:57 None; ed1 - Immunization history:: Adult Immunizations unknown, Last tetanus immunization: > 10 years ago. - Social history:: Smoking status: Patient/guardian denies using tobacco. - Ebola Screening: : Patient negative for fever greater than or equal to 101.5 degrees Fahrenheit, and additional compatible Ebola Virus Disease symptoms Patient denies exposure to infectious person Patient denies travel to an Ebola-affected area in the 21 days before illness onset No symptoms or risks identified at this time. Screenin/01 00:00 Abuse screen: Denies threats or abuse. Denies injuries from another. Nutritional ed1 screening: No deficits noted. Tuberculosis screening: No symptoms or risk factors identified. Fall Risk None identified. Assessment: 00:00 General: See triage assessment. ed1 00:52 Reassessment: Patient appears in no apparent distress at this time. Patient and/or ed1 family updated on plan of care and expected duration. Pain level reassessed. Patient is alert, oriented x 3, equal unlabored respirations, skin warm/dry/pink. Patient states feeling better. Patient states symptoms have improved. Vital Signs: 02/12 23:57 BP 170 / 91; Pulse 88; Resp 18; Temp 98.2(O); Pulse Ox 98% on R/A; Weight 97.52 kg; ed1 Height 5 ft. 8 in. (172.72 cm); Pain 7/10; 02/13 00:52 BP 149 / 83; Pulse 84; Resp 17; Pulse Ox 99% on R/A; Pain 6/10; ed1 02/12 23:57 Body Mass Index 32.69 (97.52 kg, 172.72 cm) ed1 ED Course: 02/12 23:42 Patient arrived in ED. es 23:56 Mariely Alas, LINDSAY is Primary Nurse. ed1 23:57 Triage completed. ed1 23:57 Arm band placed on. ed1 23:59 Itzel Honeycutt [facility]C [facility] snw 23:59 Christiano Garrett MD is Attending Physician. snw 02/13 00:00 Patient has correct armband on for positive identification. Bed in low position. Call ed1 light in reach. 00:34 Hand Right 3 View XRAY In Process Unspecified. EDMS 00:41 Wound care: to puncture located on dorsal aspect of middle phalanx of right index ed1 finger was cleaned with Hibiclens, dressed with Neosporin, band aid, Patient tolerated well. 00:52 No provider procedures requiring assistance completed. Patient did not have IV access ed1 during this emergency room visit. Administered Medications: 00:17 Drug: Doxycycline 100 mg Route: PO; ed1 00:41 Follow up: Response: No adverse reaction ed1 00:18 Drug: Tetanus-Diphtheria Toxoid Adult 0.5 ml {Pasting Machine Offbearer: [employer]ley. Exp: ed1 11/12/2020. Lot #: [id number]. } Route: IM; Site: right deltoid; 00:40 Follow up: Response: No adverse reaction ed1 00:41 Drug: Hibiclens 4 % 1 application Route: Topical; Site: affected area; ed1 Outcome: 00:35 Discharge ordered by . roxane 00:52 Discharged to home ambulatory. ed1 00:52 Condition: good 00:52 Discharge instructions given to patient, Instructed on discharge instructions, follow up and referral plans. medication usage, wound care, Demonstrated understanding of instructions, follow-up care, medications, wound care, Prescriptions given X 2. 00:54 Patient left the ED. ed1 Signatures: Dispatcher [employer] Itzel Luong, SUPERINTENDENT GREENS-C SUPERINTENDENT GREENS-Miriam Jarrell Erika, RN RN ed1
--- NOTE | 2019-02-13 00:38 | EDPHYS ---
Physician Documentation [facility] Name: Michael Fields Age: 68 yrs Sex: Male : 1950 Arrival Date: 02/12/2019 Time: 23:42 Bed 14 Private MD: MARIELENA Physician Christiano Garrett HPI: 02/13 00:30 This 68 yrs old Male presents to ER via Ambulatory with complaints of STING snw RAY BITE. 00:30 The patient or guardian reports a puncture wound, marine life (sting ray). The snw complaints affect the dorsal aspect of middle phalanx of right index finger. Context: The problem was sustained at a while fishing, resulted from sting ray vazquez. Onset: The symptoms/episode began/occurred suddenly, and became persistent. Associated signs and symptoms: Pertinent positives: edema and tenderness. Severity of symptoms: At their worst the symptoms were mild, moderate. The patient has not experienced similar symptoms in the past. It is unknown whether or not the patient has recently seen a physician. Historical: - Allergies: 02/12 23:57 No Known Allergies; ed1 - Home Meds: 23:57 Unable to obtain [Active]; ed1 - PMHx: 23:57 Hypertension; ed1 - PSHx: 23:57 None; ed1 - Immunization history:: Adult Immunizations unknown, Last tetanus immunization: > 10 years ago. - Social history:: Smoking status: Patient/guardian denies using tobacco. - Ebola Screening: : Patient negative for fever greater than or equal to 101.5 degrees Fahrenheit, and additional compatible Ebola Virus Disease symptoms Patient denies exposure to infectious person Patient denies travel to an Ebola-affected area in the 21 days before illness onset No symptoms or risks identified at this time. ROS: 02/13 00:28 Constitutional: Negative for fever, chills, and weight loss, Eyes: Negative for injury, snw pain, redness, and discharge, ENT: Negative for injury, pain, and discharge, Neck: Negative for injury, pain, and swelling, Cardiovascular: Negative for chest pain, palpitations, and edema, Respiratory: Negative for shortness of breath, cough, wheezing, and pleuritic chest pain, Abdomen/GI: Negative for abdominal pain, nausea, vomiting, diarrhea, and constipation, Back: Negative for injury and pain, : Negative for injury, bleeding, discharge, and swelling, MS/Extremity: Negative for injury and deformity, Neuro: Negative for headache, weakness, numbness, tingling, and seizure, Psych: Negative for depression, anxiety, suicide ideation, homicidal ideation, and hallucinations. Skin: Positive for puncture, swelling, of the dorsal aspect of middle phalanx of right index finger. Exam: 00:28 Constitutional: This is a well developed, well nourished patient who is awake, alert, snw and in no acute distress. Head/Face: Normocephalic, atraumatic. Eyes: Pupils equal round and reactive to light, extra-ocular motions intact. Lids and lashes normal. Conjunctiva and sclera are non-icteric and not injected. Cornea within normal limits. Periorbital areas with no swelling, redness, or edema. ENT: Nares patent. No nasal discharge, no septal abnormalities noted. Tympanic membranes are normal and external auditory canals are clear. Oropharynx with no redness, swelling, or masses, exudates, or evidence of obstruction, uvula midline. Mucous membranes moist. Neck: Trachea midline, no thyromegaly or masses palpated, and no cervical lymphadenopathy. Supple, full range of motion without nuchal rigidity, or vertebral point tenderness. No Meningismus. Chest/axilla: Normal chest wall appearance and motion. Nontender with no deformity. No lesions are appreciated. Cardiovascular: Regular rate and rhythm with a normal S1 and S2. No gallops, murmurs, or rubs. Normal PMI, no JVD. No pulse deficits. Respiratory: Lungs have equal breath sounds bilaterally, clear to auscultation and percussion. No rales, rhonchi or wheezes noted. No increased work of breathing, no retractions or nasal flaring. Abdomen/GI: Soft, non-tender, with normal bowel sounds. No distension or tympany. No guarding or rebound. No evidence of tenderness throughout. Back: No spinal tenderness. No costovertebral tenderness. Full range of motion. MS/ Extremity: Pulses equal, no cyanosis. Neurovascular intact. Full, normal range of motion. Neuro: Awake and alert, GCS 15, oriented to person, place, time, and situation. Cranial nerves II-XII grossly intact. Motor strength 5/5 in all extremities. Sensory grossly intact. Cerebellar exam normal. Normal gait. Psych: Awake, alert, with orientation to person, place and time. Behavior, mood, and affect are within normal limits. 00:28 Skin: Appearance: normal except for affected area, injury, puncture(s), that are superficial, of the dorsal aspect of middle phalanx of right index finger. Vital Signs: 02/12 23:57 BP 170 / 91; Pulse 88; Resp 18; Temp 98.2(O); Pulse Ox 98% on R/A; Weight 97.52 kg; ed1 Height 5 ft. 8 in. (172.72 cm); Pain 7/10; 02/13 00:52 BP 149 / 83; Pulse 84; Resp 17; Pulse Ox 99% on R/A; Pain 6/10; ed1 02/12 23:57 Body Mass Index 32.69 (97.52 kg, 172.72 cm) ed1 MDM: 02/12 23:59 Patient medically screened. snw 02/13 00:37 Data reviewed: vital signs, nurses notes. Data interpreted: Pulse oximetry: on room air snw is 98 %. Interpretation: normal. Counseling: I had a detailed discussion with the patient and/or guardian regarding: the historical points, exam findings, and any diagnostic results supporting the discharge/admit diagnosis, radiology results, the need for outpatient follow up, to return to the emergency department if symptoms worsen or persist or if there are any questions or concerns that arise at home. Special discussion: I have referred the patient to see his PCP for further evaluation of high blood pressure. I discussed in detail with the patient the higher chance of wound infection based on his presenting history. Based on the history and exam findings, there is no indication for further emergent testing or inpatient evaluation. I discussed with the patient/guardian the need to see the primary care provider for further evaluation of the symptoms. 02/13 00:04 Order name: Hand Right 3 View XRAY snw 02/13 00:04 Order name: Wound Care; Complete Time: 00:41 snw 02/13 00:04 Order name: Wound dressing; Complete Time: 00:41 snw Administered Medications: 00:17 Drug: Doxycycline 100 mg Route: PO; ed1 00:41 Follow up: Response: No adverse reaction ed1 00:18 Drug: Tetanus-Diphtheria Toxoid Adult 0.5 ml {Hatch Tender: [employer]. Exp: ed1 11/12/2020. Lot #: [id number]. } Route: IM; Site: right deltoid; 00:40 Follow up: Response: No adverse reaction ed1 00:41 Drug: Hibiclens 4 % 1 application Route: Topical; Site: affected area; ed1 Disposition: 02/13/19 00:35 Discharged to Home. Impression: Contact with other nonvenomous marine animals - stingray. - Condition is Stable. - Discharge Instructions: Marine Life Injury, Puncture Wound, Wound Infection, VIS, Tetanus, Diphtheria (Td) - CDC, Wound Care. - Prescriptions for Doxycycline Hyclate 100 mg Oral Tablet - take 1 tablet by ORAL route every 12 hours; 20 tablet. Diclofenac Sodium 75 mg Oral Tablet Sustained Release - take 1 tablet by ORAL route 2 times per day; 30 tablet. - Medication Reconciliation Form, Thank You Letter, Antibiotic Education, Prescription Opioid Use form. - Follow up: Private Physician; When: 2 - 3 days; Reason: Recheck today's complaints, Continuance of care, Re-evaluation by your physician. Follow up: Emergency Department; When: As needed; Reason: Worsening of condition. Signatures: Dispatcher [employer] EDMS Itzel Honeycutt, FIRE WATCHER-C FIRE WATCHER-Csnw Mariely Alas RN RN ed1 Corrections: (The following items were deleted from the chart) 00:54 00:35 02/13/2019 00:35 Discharged to Home. Impression: Contact with other nonvenomous ed1 marine animals - stingray. Condition is Stable. Forms are Medication Reconciliation Form, Thank You Letter, Antibiotic Education, Prescription Opioid Use. Follow up: Private Physician; When: 2 - 3 days; Reason: Recheck today's complaints, Continuance of care, Re-evaluation by your physician. Follow up: Emergency Department; When: As needed; Reason: Worsening of condition. snw
--- NOTE | 2019-02-13 11:25 | RAD REPORT ---
EXAM DESCRIPTION: RAD - Hand Right 3 View - 02/13/2019 12:33 am CLINICAL HISTORY: r/o fb index finger Animal bite COMPARISON: No comparisons FINDINGS: Soft tissue swelling affects the second finger. No fracture or radiopaque foreign body.
== END 2019-02-13 00:54 | disposition home or self-care (01) ==
LOC: ER 23:40
DX: S61.230A Puncture wound without foreign body of right index finger without damage to nail, initial encounter (principal); T63.511A Toxic effect of contact with stingray, accidental (unintentional), initial encounter; I10 Essential (primary) hypertension; Z23 Encounter for immunization
CPT/HCPCS: 90471; 90714; 99284